=== PATIENT | male | born 1970 | race Caucasian/White ===

== ENCOUNTER 2021-01-08 19:37 | Emergency (ER) | payer MEDICAID ==
[~2021-01-08] VITALS: Ht 188 cm; Wt 120.2 kg
[~2021-01-08 19:37] MED LIST: ASPI81TA31; ATEN50TA PO
[2021-01-08 20:15] VITALS: BP 145/96
== END 2021-01-08 20:15 | disposition home or self-care (01) ==
LOC: ER 19:38
DX: H60.91 Unspecified otitis externa, right ear (principal); Z79.82 Long term (current) use of aspirin; Z79.899 Other long term (current) drug therapy
CPT/HCPCS: A4663

== ENCOUNTER 2023-01-17 19:14 | Emergency (ER) | payer MEDICAID, OTHER ==
[~2023-01-17] VITALS: Ht 188 cm; Wt 108.9 kg
--- NOTE | 2023-01-17 19:34 | NUR ---
After being triaged, patient was placed back in waiting room due to no beds available in the ER at this time.
--- NOTE | 2023-01-17 22:00 | NUR ---
Patient was called to have vital sign reassessed but was not present in the waiting room or outside of ER.
--- NOTE | 2023-01-17 22:45 | NUR ---
Patient was called to have vital signs reassessed but was not present in the waiting room or outside of ER. Patient was triaged but not seen by ERMD.
== END 2023-01-17 22:45 | disposition left against medical advice (07) ==
LOC: ER 19:14
DX: M25.561 Pain in right knee (principal); Z53.20 Procedure and treatment not carried out because of patient's decision for unspecified reasons
CPT/HCPCS: A4663